=== PATIENT | male | born 1940 | race Caucasian/White ===

== ENCOUNTER → 2016-11-09 | Outpatient (CLI) | payer MEDICARE ==
[~2016-11-09] MED LIST: METO25TA91 PO; RIVA20TA PO
== END | disposition home or self-care (01) ==
LOC: CFH 12:54
PROVIDERS: ATTEND Internal Medicine Cardiovascular Disease
DX: I08.3 Combined rheumatic disorders of mitral, aortic and tricuspid valves (principal); I48.91 Unspecified atrial fibrillation; Q21.1 Atrial septal defect
CPT/HCPCS: 93306

== ENCOUNTER 2016-11-10 10:58 | Day surgery (SDC) | payer MEDICARE ==
[~2016-11-10] VITALS: Ht 193 cm; Wt 104.5 kg
[2016-11-10 11:26] VITALS: BP 129/88
[2016-11-10] MEDS ORDERED: METO25TA91 PO (11:52)
[2016-11-10] MEDS ORDERED: RIVA20TA PO (11:52)
[2016-11-10 11:57] LABS: BLOOD UREA NITROGEN 15 mg/dL (7-18)
[2016-11-10] MEDS ORDERED: PROPOFOL 10 MG/ML, 20ML ONE (12:18)
== END 2016-11-10 13:35 | disposition home or self-care (01) ==
LOC: CACL 10:58 → EDSTATUS 12:00 → CACL 13:35
PROVIDERS: ATTEND Internal Medicine Cardiovascular Disease
DX: I48.0 Paroxysmal atrial fibrillation (principal); I35.1 Nonrheumatic aortic (valve) insufficiency; I10 Essential (primary) hypertension; I42.9 Cardiomyopathy, unspecified; I71.9 Aortic aneurysm of unspecified site, without rupture; Z79.01 Long term (current) use of anticoagulants
CPT/HCPCS: 36415; 80048; 84436; 84481; 85025; 92960; J2704

== ENCOUNTER 2016-11-21 08:00 | Inpatient (IN) | payer MEDICARE ==
[~2016-11-21] VITALS: Ht 193 cm; Wt 104.6 kg
[2016-11-21] MEDS ORDERED: ZOLPIDEM 5MG TABLET PO PRN (11:00)
[2016-11-21] MEDS ORDERED: ALUMINUM/MAG/SIMETHICONE 30 ML UDC PO PRN (11:00)
[2016-11-21] MEDS ORDERED: PLEASE ENTER HEIGHT AND WEIGHT MC SCH (11:00)
[2016-11-21] MEDS ORDERED: ACETAMINOPHEN 325 MG TABLET PO PRN (11:00)
[2016-11-21] MEDS ORDERED: FILTER 0.22 MICRON IV PRN (11:30)
[2016-11-21] MEDS ORDERED: AMIODARONE 150 MG in DEXTROSE 5% 100 ML IV ONE (11:30)
[2016-11-21] MEDS ORDERED: OMNIPAQUE 350 MG/ML, 100ML BOTTLE ONE (11:47)
[2016-11-21 12:36] LABS: BLOOD UREA NITROGEN 18 mg/dL (7-18)
[2016-11-21 12:46] LABS: ASPARTATE AMINO TRANSFERASE 10 U/L (15-37)
[2016-11-21] MEDS: AMIODARONE 900 MG in DEXTROSE 5% 482 ML IV PRN (12:52)
[2016-11-21 15:05] VITALS: BP 120/87
[2016-11-21 15:22] VITALS: BP 129/71
[2016-11-21 19:57] VITALS: BP 130/78
[2016-11-21] MEDS: SODIUM CHLORIDE FLUSH 10ML SYR IVF SCH (21:00)
[2016-11-22 02:59] VITALS: BP 130/78
[2016-11-22] MEDS: SODIUM CHLORIDE FLUSH 10ML SYR IVF SCH ×2 (09:00→21:00)
[2016-11-22] MEDS: METOPROLOL SUCCINATE 25 MG TAB.ER.24H PO SCH (10:34)
[2016-11-22] MEDS: RIVAROXABAN 20 MG TABLET PO SCH (10:34)
[2016-11-22] MEDS: AMIODARONE 900 MG in DEXTROSE 5% 482 ML IV PRN (10:35)
[2016-11-22 11:24] VITALS: BP 115/62
[2016-11-22] MEDS ORDERED: SODIUM CHLORIDE 0.9% 1,000 ML IV ONE (14:00)
[2016-11-22 16:06] VITALS: BP 129/93
[2016-11-22 19:34] VITALS: BP 123/68
[2016-11-22] MEDS ORDERED: AMIODARONE 200 MG TABLET PO SCH (21:00)
[2016-11-23 03:06] VITALS: BP 97/53
[2016-11-23] MEDS ORDERED: SODIUM CHLORIDE 0.9% 1,000 ML IV SCH (04:30)
[2016-11-23 06:00] VITALS: BP 135/73
[2016-11-23 07:34] VITALS: BP 120/69
[2016-11-23] MEDS: METOPROLOL SUCCINATE 25 MG TAB.ER.24H PO SCH (08:40)
[2016-11-23] MEDS: SODIUM CHLORIDE FLUSH 10ML SYR IVF SCH (08:41)
[2016-11-23] MEDS: RIVAROXABAN 20 MG TABLET PO SCH (08:41)
[2016-11-23] MEDS ORDERED: AMIODARONE 200 MG TABLET PO SCH (09:00)
[2016-11-23 13:01] VITALS: BP 125/60
[2016-11-23] MEDS ORDERED: PROPOFOL 10 MG/ML, 20ML ONE (15:33)
[2016-11-23] MEDS ORDERED: AMIO200T42 PO (15:52)
[2016-11-23] MEDS ORDERED: LISI5TAB7 PO (16:46)
== END 2016-11-23 17:29 | disposition home or self-care (01) | DRG 309 ==
LOC: 5SO 08:56
PROVIDERS: ADMIT Internal Medicine Cardiovascular Disease; ATTEND Internal Medicine Cardiovascular Disease
PROC: 5A2204Z Restoration of Cardiac Rhythm, Single (ICD-10-PCS; principal; 2016-11-22 09:30)
DX: I48.0 Paroxysmal atrial fibrillation (principal); I50.42 Chronic combined systolic (congestive) and diastolic (congestive) heart failure; D68.69 Other thrombophilia; I35.1 Nonrheumatic aortic (valve) insufficiency; I42.9 Cardiomyopathy, unspecified; I71.2 Thoracic aortic aneurysm, without rupture; E66.9 Obesity, unspecified; Z96.643 Presence of artificial hip joint, bilateral; I11.0 Hypertensive heart disease with heart failure; Z87.891 Personal history of nicotine dependence; Z68.28 Body mass index [BMI] 28.0-28.9, adult
CPT/HCPCS: 36415; 71020; 71275; 80053; 80061; 84439; 84443; 85025; 92960; 93005; 93312; 93325; J2704; Q9967; J0282; J7060

== ENCOUNTER 2016-12-06 11:22 | Day surgery (SDC) | payer MEDICARE ==
[2016-12-05 10:58] VITALS: BP 144/71
[2016-12-05 11:45] LABS: BLOOD UREA NITROGEN 21 mg/dL (7-18)
[~2016-12-06] VITALS: Ht 193 cm; Wt 104.1 kg
[~2016-12-06 11:22] MED LIST changes: +AMIO200T42 PO; +LISI5TAB7 PO
[2016-12-06] MEDS ORDERED: AMIO200T42 PO (11:57)
[2016-12-06] MEDS ORDERED: LISI5TAB7 PO (11:58)
[2016-12-06] MEDS ORDERED: VERAPAMIL 2.5 MG/ML, 2ML ONE (13:32)
[2016-12-06] MEDS ORDERED: HEPARIN 1,000 UNITS/ML, 10ML ONE (13:32)
[2016-12-06] MEDS ORDERED: LIDOCAINE 2%, 20ML ONE (13:32)
[2016-12-06] MEDS ORDERED: FENTANYL PF 100 MCG/2ML ONE (13:32)
[2016-12-06] MEDS ORDERED: MIDAZOLAM 1 MG/ML, 5ML ONE (13:32)
[2016-12-06] MEDS ORDERED: BIVALIRUDIN 250 MG ONE (13:32)
== END 2016-12-06 17:03 | disposition home or self-care (01) ==
LOC: CACL 11:22
PROVIDERS: ATTEND Internal Medicine Cardiovascular Disease
DX: I35.1 Nonrheumatic aortic (valve) insufficiency (principal); I71.9 Aortic aneurysm of unspecified site, without rupture; Z88.6 Allergy status to analgesic agent; Z88.1 Allergy status to other antibiotic agents
CPT/HCPCS: 36415; 71020; 80048; 85025; 85610; 85730; 93458; 93567; 99156; 99157; C1894; J1644; J2250; J3010; J3490; Q9967; J0583

== ENCOUNTER → 2017-01-03 | Outpatient (CLI) | payer MEDICARE | END | disposition home or self-care (01) | LOC: CFH 13:04 | PROVIDERS: ATTEND Internal Medicine Cardiovascular Disease | DX: I35.9 Nonrheumatic aortic valve disorder, unspecified (principal); I71.9 Aortic aneurysm of unspecified site, without rupture | CPT/HCPCS: 36415; 85610 ==

== ENCOUNTER → 2017-01-05 | Outpatient (CLI) | payer MEDICARE | END | disposition home or self-care (01) | LOC: CFH 10:33 | PROVIDERS: ATTEND Internal Medicine Cardiovascular Disease | DX: I35.9 Nonrheumatic aortic valve disorder, unspecified (principal); I48.0 Paroxysmal atrial fibrillation; I71.9 Aortic aneurysm of unspecified site, without rupture | CPT/HCPCS: 36415; 85610 ==

== ENCOUNTER → 2017-01-18 | Outpatient (CLI) | payer MEDICARE | END | disposition home or self-care (01) | LOC: LAB 10:05 | PROVIDERS: ATTEND Internal Medicine Cardiovascular Disease | DX: I35.9 Nonrheumatic aortic valve disorder, unspecified (principal); I48.0 Paroxysmal atrial fibrillation; I71.9 Aortic aneurysm of unspecified site, without rupture | CPT/HCPCS: 36415; 85610 ==

== ENCOUNTER → 2017-01-25 | Outpatient (CLI) | payer MEDICARE | END | disposition home or self-care (01) | LOC: CFH 10:48 | PROVIDERS: ATTEND Internal Medicine Cardiovascular Disease | DX: I35.9 Nonrheumatic aortic valve disorder, unspecified (principal); I71.9 Aortic aneurysm of unspecified site, without rupture | CPT/HCPCS: 36415; 85610 ==

== ENCOUNTER → 2017-02-01 | Outpatient (CLI) | payer MEDICARE ==
[~2017-02-01] MED LIST changes: +ACET325C PO; +ASPI-496 PO; +DIGO250T PO; +TAMS0.4C2 PO; +WARF4TAB7 PO
== END | disposition home or self-care (01) ==
LOC: CFH 09:32
PROVIDERS: ATTEND Internal Medicine Cardiovascular Disease
DX: I48.0 Paroxysmal atrial fibrillation (principal); I35.9 Nonrheumatic aortic valve disorder, unspecified; I71.9 Aortic aneurysm of unspecified site, without rupture
CPT/HCPCS: 36415; 85610

== ENCOUNTER 2017-02-06 10:31 | Day surgery (SDC) | payer MEDICARE ==
[2017-02-03 11:43] LABS: BLOOD UREA NITROGEN 8 mg/dL (7-18)
[~2017-02-06] VITALS: Ht 193 cm; Wt 100.9 kg
[2017-02-06] MEDS ORDERED: MIDAZOLAM 1 MG/ML, 5ML ONE (11:58)
[2017-02-06] MEDS ORDERED: FENTANYL PF 100 MCG/2ML ONE (11:59)
== END 2017-02-06 14:31 ==
LOC: CACL 10:31
PROVIDERS: ATTEND Internal Medicine Cardiovascular Disease
DX: I48.91 Unspecified atrial fibrillation (principal); I10 Essential (primary) hypertension; Z79.82 Long term (current) use of aspirin; Z88.6 Allergy status to analgesic agent; Z88.1 Allergy status to other antibiotic agents
CPT/HCPCS: 36415; 80048; 80162; 85610; 92960; 93005; J2250; J3010

== ENCOUNTER → 2018-01-23 | Outpatient (CLI) | payer MEDICARE ==
[~2018-01-23] MED LIST changes: +WARF4TAB65 PO; -WARF4TAB7 PO
== END | disposition home or self-care (01) ==
LOC: CVU 11:07
PROVIDERS: ATTEND Internal Medicine Cardiovascular Disease
DX: I65.23 Occlusion and stenosis of bilateral carotid arteries (principal); I10 Essential (primary) hypertension; Z95.2 Presence of prosthetic heart valve
CPT/HCPCS: 93880

== ENCOUNTER 2019-02-12 08:30 | Outpatient (CLI) | payer MEDICARE ==
[~2019-02-12 08:30] MED LIST changes: -ACET325C PO; +ACET325C3 PO
== END 2019-02-12 23:59 | disposition home or self-care (01) ==
LOC: CFH 08:30
PROVIDERS: ATTEND Internal Medicine Cardiovascular Disease
DX: I08.1 Rheumatic disorders of both mitral and tricuspid valves (principal); I10 Essential (primary) hypertension; I48.91 Unspecified atrial fibrillation
CPT/HCPCS: 93306

== ENCOUNTER 2019-12-20 15:24 | Emergency (ER) | payer MEDICARE ==
[~2019-12-20] VITALS: Ht 193 cm; Wt 102.3 kg
[~2019-12-20 15:24] MED LIST changes: -DIGO250T PO; +DIGO250T3 PO
[2019-12-20 16:42] LABS: BASOPHILS # (AUTO) 0.01 x10^3/uL (0-0.1); BASOPHILS % (AUTO) 0 % (0-1); EOSINOPHILS # (AUTO) 0.02 x10^3/uL (0-0.4); EOSINOPHILS % (AUTO) 0 % (1-7); LYMPHOCYTES # (AUTO) 0.31 x10^3/uL (1-3.4); LYMPHOCYTES % (AUTO) 3 % (22-44); MD NO; MEAN CORPUSCULAR HEMOGLOBIN 34.2 pg (27.5-34.5); MEAN CORPUSCULAR HGB CONC 33.6 g/dL (33.2-36.2); MEAN PLATELET VOLUME 7.8 fL (7.4-10.4); MONOCYTES # (AUTO) 0.28 x10^3/uL (0.2-0.8); MONOCYTES % (AUTO) 3 % (2-9); NEUTROPHILS # (AUTO) 10.53 x10^3/uL (1.8-6.8); NEUTROPHILS % (AUTO) 94 % (42-75); PLATELET COUNT 148 x10^3/uL (130-400); RED BLOOD COUNT 4.33 x10^6/uL (4.38-5.82); RED CELL DISTRIBUTION WIDTH 14.1 % (9.4-14.8)
[2019-12-20 16:55] LABS: ALBUMIN 3.5 g/dL (3.4-5.0); ANION GAP 6 mmol/L (5-15); CALCIUM 9.8 mg/dL (8.5-10.1); CHLORIDE 110 mmol/L (98-107)
[2019-12-20 16:59] LABS: TROPONIN I 0.048 ng/mL (0.000-0.045)
[2019-12-20 17:08] VITALS: BP 120/62
--- NOTE | 2019-12-20 17:08 | NUR ---
UA COLLECTED AND SENT TO LAB, ALFRED, BK NOTED
[2019-12-20 17:18] LABS: MICROSCOPIC INDICATED
[2019-12-20] MEDS ORDERED: CEFDINIR 300 MG CAPSULE PO ONE (18:00)
--- NOTE | 2019-12-20 18:00 | NUR ---
REQUEST SENT TO PHARM FOR MEDICATION, WILL THEN DC ORDERED
--- NOTE | 2019-12-20 18:09 | NUR ---
CALL X2 TO FLOOR, REQUEST TO GIVE REPORT TO SUP
== END 2019-12-20 19:01 | disposition home or self-care (01) ==
LOC: ED 17:03
DX: R78.81 Bacteremia (principal); R53.1 Weakness; R51 Headache; M54.5 Low back pain; R94.31 Abnormal electrocardiogram [ECG] [EKG]; I48.91 Unspecified atrial fibrillation
CPT/HCPCS: 36415; 70450; 80048; 81001; 82040; 84484; 85025; 87040; 87076; 93005; 99285